=== PATIENT | male | born 1970 | race Two or more races ===

== ENCOUNTER 2019-01-02 10:25 | Emergency (ER) | payer SELFPAY ==
[~2019-01-02] VITALS: Ht 185.4 cm; Wt 95.7 kg
[2019-01-02 10:45] VITALS: BP 149/108
== END 2019-01-02 11:55 | disposition home or self-care (01) ==
LOC: ER 10:29
DX: R19.7 Diarrhea, unspecified (principal)

== ENCOUNTER 2019-01-05 13:44 | Inpatient (IN) | payer SELFPAY ==
[~2019-01-05] VITALS: Ht 185.4 cm; Wt 95.7 kg
[2019-01-05 14:40] LABS: Basophils # (auto) 0 uL; Basophils % (auto) 0.5 % (0.0-2.0); Eosinophils # (auto) 0.1 uL; Eosinophils % (auto) 1.4 % (0.0-7.0); Hematocrit 41.9 % (41.0-53.0); Hemoglobin 14.5 g/dL (13.5-17.5); Lymphocytes # (auto) 1.2 uL; Lymphocytes % (auto) 20.4 % (10.0-50.0); Mean Corpuscular Hemoglobin 29.2 pg (28.0-32.0); Mean Corpuscular Hgb Conc. 34.6 g/dL (32.0-36.0); Mean Corpuscular Volume 84.6 fL (80.0-100.0); Monocytes # (auto) 0.4 uL; Neutrophils % (auto) 70.7 % (37.0-80.0); Nucleated Red Blood Cells % 0.1 %; Platelet Count (auto) 183 10^3/uL (140-450); Red Blood Cells 4.95 10^6/uL (4.5-5.90); Red Cell Distribution Width 13.3 % (11.8-14.3); White Blood Cell 5.7 10^3/uL (4.4-10.8)
[2019-01-05 15:22] LABS: Albumin 3.8 g/dL (3.4-5.0); BUN/Creatinine Ratio 11.6; Calcium 8.6 mg/dL (8.5-10.1); Potassium 3.7 mmol/L (3.5-5.1)
[2019-01-05 15:25] LABS: Bilirubin, Total 0.5 mg/dL (0.2-1.0); Total Protein 7.4 g/dL (6.4-8.2)
[2019-01-05] MEDS ORDERED: ACETAMINOPHEN 325 MG TAB PO PRN (21:00)
[2019-01-05] MEDS ORDERED: TEMAZEPAM 15 MG CAP PO PRN (21:00)
[2019-01-05] MEDS ORDERED: HYDROcodone-ACET 5/325MG TAB PO PRN (21:00)
[2019-01-05] MEDS ORDERED: ONDANSETRON HCL 4 MG/2 ML VIAL IV PRN (21:00)
[2019-01-05] MEDS ORDERED: FAMOTIDINE 20 MG TAB PO SCH (22:00)
--- NOTE | 2019-01-05 22:05 | NUR ---
MS admit from ER [facility] admitted to tele/MS after SBAR received. Patient oriented to Patricia Lee, RN primary RN, unit, room, bed, and unit policies regarding patient care and visiting hours. Patient weighed by bedscale and encouraged to call if they need something. All questions and concerns addressed, patient verbalized understanding. Note: Patient did not have IV access upon arrival. Will attempt IV access. Secondary RN at bedside for admission questions. Fall and safety precautions in place. Call light within reach.
[2019-01-05 22:10] VITALS: BP 156/91
--- NOTE | 2019-01-05 22:15 | NUR ---
IV insertion IV access obtained, via clean sterile technique by inserting 20 gauge catheter at RAC after first attempt. IV secured properly. No trauma to site. Patient tolerated well.
--- NOTE | 2019-01-05 22:30 | NUR ---
IV DRESSING IV dressing to RAC changed due to dressing getting wet. Patient tolerated well
[2019-01-06 05:00] VITALS: BP 129/72
[2019-01-06 05:52] LABS: Basophils # (auto) 0 uL; Basophils % (auto) 0.8 % (0.0-2.0); Eosinophils # (auto) 0.1 uL; Eosinophils % (auto) 2.3 % (0.0-7.0); Hematocrit 39.6 % (41.0-53.0); Hemoglobin 13.4 g/dL (13.5-17.5); Lymphocytes # (auto) 1.7 uL; Lymphocytes % (auto) 26.4 % (10.0-50.0); Mean Corpuscular Hemoglobin 28.8 pg (28.0-32.0); Mean Corpuscular Hgb Conc. 33.9 g/dL (32.0-36.0); Monocytes # (auto) 0.5 uL; Monocytes % (auto) 7.9 % (0.0-12.0); Neutrophils % (auto) 62.6 % (37.0-80.0); Platelet Count (auto) 169 10^3/uL (140-450); Red Blood Cells 4.66 10^6/uL (4.5-5.90); White Blood Cell 6.4 10^3/uL (4.4-10.8)
[2019-01-06 06:15] LABS: Potassium 3.8 mmol/L (3.5-5.1)
[2019-01-06 06:20] LABS: BUN/Creatinine Ratio 12.7; Calcium 8.6 mg/dL (8.5-10.1)
--- NOTE | 2019-01-06 07:40 | NUR ---
Opening Note Assumed care of patient, made patient NPO for [place] hidascan, no breakfast eaten, patient has not eaten since last night. He is A & O x4, no complaints at this time. No pain at this time. POC discussed, bed is in low, locked position call light within reach. Patient will be heading to [place] for hidascan. Will continue to monitor Q1h and PRN.
[2019-01-06 08:24] LABS: INR 1.03 (0.9-1.15); Partial Thromboplastin Time 28.5 sec (23.64-32.05)
[2019-01-06 09:00] VITALS: BP 131/84
[2019-01-06] MEDS ORDERED: SOD CHL 0.9%/ KCL 20MEQ 1,000 ML IV SCH (09:45)
[2019-01-06] MEDS ORDERED: MORPHINE SULF INJ 2 MG/ML SYRINGE 1ML IV PRN (09:45)
[2019-01-06] MEDS ORDERED: FAMOTIDINE (10MG/ML) 2ML VL IV SCH (10:00)
[2019-01-06 12:38] VITALS: BP 146/86
--- NOTE | 2019-01-06 15:50 | NUR ---
Paged Chuy Gomez regarding patient wanting to be discharged today due to no insurance coverage and cost. Patient states "I spoke to Marc Marin today and I will have to pay, I don't qualify for medi-ar[employer] I make too much money."
--- NOTE | 2019-01-06 15:52 | NUR ---
Spoke to Chuy Gomez, he will speak to case management to see if there is anything we can do for the patient.
[2019-01-06 16:04] LABS: Urine Bacteria NONE SEEN /hpf (None Seen); Urine Blood Negative /uL (Negative); Urine Mucus FEW (None Seen); Urine Specific Gravity 1.021 (1.001-1.035); Urine WBC <1 /hpf (0 - 3)
[2019-01-06 16:33] VITALS: BP 135/85
--- NOTE | 2019-01-06 17:00 | NUR ---
Spoke to Chuy Gomez. Will see if patient is willing to stay the night, have labs drawn in the morning and monitor patient tolerance of food and abdominal pain.
[2019-01-06 17:26] VITALS: BP 135/85
--- NOTE | 2019-01-06 17:50 | NUR ---
Spoke to Chuy Gomez, patient would like to [facility]. Notified Chuy.
--- NOTE | 2019-01-06 17:51 | NUR ---
Chuy Gomez spoke to patient at bedside.
--- NOTE | 2019-01-06 17:55 | NUR ---
Spoke to child caregiver, notified Treasure patient will be leaving AMA.
--- NOTE | 2019-01-06 18:01 | NUR ---
Patient signed AMA form Patient spoke with Chuy Gomez regarding leaving the hospital AMA. Patient is A & O x 4. Patient states "I don't have health insurance, I make too much money to qualify for [employer], I would have to pay for the surgery myself and it would be too much of a financial burden. I have open enrollment at my work next month, I will sign up and deal with this then." Patient has been informed that he will be leaving against medical advice, signed the form. Patient IV discontinued, pressure dressing applied. Wristbands and ID band removed. Patient is ambulatory, was walked to the exit to wait for his ride by staff. No s/s of distress at time of departure.
== END 2019-01-06 18:01 | disposition left against medical advice (07) | DRG 446 ==
LOC: ER 13:44 → OVERFLOW 13:45 → WEST WING 22:00
PROVIDERS: ADMIT Nurse Practitioner; ATTEND Family Medicine
DX: K80.44 Calculus of bile duct with chronic cholecystitis without obstruction (principal); G89.29 Other chronic pain; M54.5 Low back pain; R79.89 Other specified abnormal findings of blood chemistry; Z53.21 Procedure and treatment not carried out due to patient leaving prior to being seen by health care provider
CPT/HCPCS: 36415; 71045; 76705; 78226; 80048; 80053; 81001; 83690; 85025; 85610; 85730; 86850; 86900; 86901; G0378; J3490